=== PATIENT | female | born 1960 | race Caucasian/White ===

== ENCOUNTER → 2022-11-30 13:15 | Outpatient (CLI) | payer OTHER, SELFPAY ==
[2022-11-30 14:07] LABS: Add Manual Diff / Slide Review NO; Basophils Absolute Auto 100 /uL (0-100); Basophils Percent Auto 1.4 % (0-2); Eosinophils Absolute Auto 200 /uL (0-450); Eosinophils Percent Auto 2.2 % (2-4); Hematocrit 40.7 % (36-46); Hemoglobin 13.7 g/dL (12.0-16.0); Lymphocytes Absolute Auto 2000 /uL (1100-4500); Lymphocytes Percent Auto 27.8 % (25-40); Mean Corpuscular HGB Conc 33.7 % (30-36); Mean Corpuscular Hemoglobin 29.2 PG (26-34); Mean Corpuscular Volume 86.7 fL (80-100); Monocytes Absolute Auto 600 /uL (0-900); Monocytes Percent Auto 8.4 % (3-14); Neutrophils Absolute Auto 4400 /uL (1500-7000); Neutrophils Percent Auto 60.2 % (50-75); Platelet Count 330 X10^3/uL (150-400); Red Blood Cell Count 4.69 X10^6/uL (4.0-5.2); Red Cell Distribution Width 13.7 % (11.6-14.8); White Blood Cell Count 7.3 X10^3/uL (4.5-11.0)
[2022-11-30 14:18] LABS: BUN Creatinine Ratio 32.8 (6-22); Blood Urea Nitrogen 20 mg/dL (7-17); Calcium 9.3 mg/dL (8.4-10.2); Carbon Dioxide 30 mmol/L (22-32); Chloride 101 mmol/L (98-107); Estimated Glomerular Filt Rate > 60 mL/min (>60); Glucose 102 mg/dL (80-110); HEMOLYSIS < 15 (0-50); Sodium 136 mmol/L (137-145)
[2022-11-30 15:03] LABS: Appearance Urine UA CLEAR; Bilirubin Urine UA NEGATIVE (NEGATIVE); Color Urine UA YELLOW; Glucose Urine UA NEGATIVE (Negative); Ketones Urine UA NEGATIVE (NEGATIVE); Leukocyte Esterase Urine UA NEGATIVE (NEGATIVE); Nitrite Urine UA NEGATIVE (Negative); Occult Blood Urine UA NEGATIVE (Negative); Protein Urine UA NEGATIVE (Negative); Specific Gravity Urine UA <=1.005 (1.000-1.035); Urobilinogen Urine UA 0.2 E.U./dL (0.2)
[2022-11-30 15:20] LABS: Bacteria Urine None Seen; RBC Urine None Seen (0-5/HPF); Squamous Epithelial Cell Urine None Seen (0-5/HPF); WBC Urine None Seen (0-5/HPF)
[2022-11-30 15:21] LABS: Culture Indicated Urine Cult Not Indicated
[2022-12-01 06:35] LABS: x Labcorp Estim. Avg Glu (eAG) 111 mg/dL (.); x Labcorp Hemoglobin A1c 5.5 % (4.8-5.6)
== END ==
PROVIDERS: Referring Provider Orthopaedic Surgery; Visit Provider Orthopaedic Surgery
DX: Z01.818 Encounter for other preprocedural examination (principal); R73.9 Hyperglycemia, unspecified; Z01.812 Encounter for preprocedural laboratory examination; N39.0 Urinary tract infection, site not specified
CPT/HCPCS: 36415; 80048; 81001; 83036; 85025; 93005; 93010

== ENCOUNTER → 2024-03-25 12:43 | Outpatient (CLI) | payer OTHER, SELFPAY ==
--- NOTE | 2024-03-25 12:46 | EKG_ITS ---
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
== END ==
PROVIDERS: Referring Provider Orthopaedic Surgery; Visit Provider Orthopaedic Surgery
DX: Z01.818 Encounter for other preprocedural examination (principal)
CPT/HCPCS: 93005

== ENCOUNTER 2024-04-08 12:34 | Day surgery (SDC) | payer OTHER, SELFPAY ==
[2024-04-02 09:40] VITALS: BMI 32.2
--- NOTE | 2024-04-08 06:00 | DI.RAD.S_ITS ---
PROCEDURE: XR KNEE LT 1TO2V INDICATIONS: TKA TECHNIQUE: 2 view(s) of the knee acquired. COMPARISON: [facility] [place], PENNIE, XR KNEE ARTHRITIC SERIES BI, 12/05/2023, 8:30. FINDINGS: Bones: Patient is status post knee joint arthroplasty. Hardware components are in expected positions. Visualized bony structures are intact. Soft tissues: Overlying postoperative changes are noted. IMPRESSION: Expected immediate postoperative appearance of left TKA. Dictated by: Neel Sanchez Grady Interpreted: Jorge Calles MD on 04/09/2024 at 9:51 Transcribed by: BERNADETTE on 04/09/2024 at 9:51 Approved by: Jorge Calles M.D. on 04/16/2024 at 9:57
[2024-04-08 13:35] VITALS: BMI 32.2
[2024-04-08 13:43] VITALS: BP 136/80; PULSE 87; RESP 14; TEMP 36.9; O2SAT 98
[2024-04-08] MEDS: ACETAMINOPHEN 325 MG TABLET 975 MG PO (13:47)
[2024-04-08] MEDS: LACTATED RINGERS 1,000 ML 42 ML IV (13:59)
[2024-04-08] MEDS: VANCOMYCIN 1,000 MG/200 ML PIGGYBACK 200 MG IV (14:30)
--- NOTE | 2024-04-08 15:07 | P.OP_ITS ---
Operative Date/Time/Diagnoses Date of procedure: 04/08/24 Time of procedure: 15:30 Pre-op diagnosis: left knee OA Post-op diagnosis: same Procedure & Clinicians Procedure: Left total knee arthroplasty Same procedure as scheduled: Yes Indications: The patient has had progressively worsening left knee pain with radiographic changes consistent with arthritis. Non-operative management has failed and the patient has requested total knee replacement. The risks, benefits and alternatives to surgery were discussed with the patient prior to proceeding. Risks discussed included, but were not limited to, failure to relieve pain, stiffness, infection, nerve damage, deep venous thrombosis, pulmonary embolism, stroke, coma, heart attack, permanent paralysis and , as well as the potential need for eventual revision of the prosthetic. Surgeon: Sadaf Ibarra Contract Associate Manager: Hunter Singh Anesthesia Type: General and Peripheral nerve block Operative Notes Findings: Severe left knee OA, adequate stability Closure Type: primary Specimen(s): none sent Prosthetic devices, grafts, tissues, transplants, or devices: [facility] BCS 2 size 5 femur, size 4 tibia, +9 poly, patella 35 x 7-1/2 mm Estimated Blood Loss (mL): 250 Blood products transfused: none Procedure in detail: The patient was seen in the pre-operative area, where the patient identified the left knee as the operative site and this was marked with my initials. The patient received pre-operative antibiotics, and was taken to the operating room and placed on the operative table in the supine position. After satisfactory anesthesia, a timekeeper out was performed. The left leg was encircled with a tourniquet about the proximal thigh, and the leg was prepared from the toes to the tourniquet with ChloroPrep in the usual fashion and draped through sterile drapes. The leg was elevated and exsanguinated with Eschmark bandage and the tourniquet inflated to [250] mmHg pressure. A PA was used during the procedure and was essential for intraoperative retraction and safe implantation of the components. The knee was approached through an approximately 18 cm incision centered over the patella and carried into the knee through a medial parapatellar arthrotomy. Portion of the medial and lateral meniscus was resected. Soft tissue was carefully mobilized around the patella the patella was measured with a caliper. Bone was resected from the patella and the patellar height was reconstituted with up an appropriate sized patellar component. A cover was then placed on the patella. A small amount of additional medial and lateral meniscus was resected. Cori pins were placed in the femur for Cori navigation. The knee was meticulously mapped. It was placed through a range of motion and a plan was developed to optimize range of motion and stability. The Cori robotic bur was used for the distal femoral resection. It looked like an appropriate distal femoral cut and the cut was made without difficulty. The rotation was assessed and the appropriate size femoral guide was placed on the distal femur and finishing cuts were made. There was no evidence of notching. The anterior, posterior and chamfer cuts were then made. The posterior osteophytes and soft tissues were then removed. The posterior capsule was injected with part of a mixture of 60 ml 0.25% Marcaine mixed with 20 ml Exparel for post operative pain control. The remainder of this mixture was injected into the capsule and subcutaneous tissues during cement curing. The tibia was carefully navigated. The rotation was assessed. The patient was placed in extension residual medial and lateral meniscus as well as any residual bone was carefully resected. [No] additional tibia was resected. Hemostasis was achieved especially posteriorly. Additional local was injected into the posterior capsule. The extension gap was assessed. The femoral component was trial was placed and the notch was finished. Trial tibial and femoral components were then placed and the knee placed through a range of motion. Range of motion was [0-130], with good stability throughout the range. The trials were then removed, and the tibia was finished. The bone was prepared with pulsatile lavage, and dried with a sponge. Cement was applied and the final prosthetics placed. Excess cement was removed during and after cement curing. A brief Betadine soak was performed. After confirming there was no extruded cement posteriorly, the final tibial insert was placed. The knee was copiously irrigated and the tourniquet deflated. Hemostasis was obtained with the Bovie cautery. The capsule was closed with interrupted # 1 Vicryl suture. The subcutaneous layer was closed with barbed sutures, and the skin with a running 3-0 V-Lock suture and Surgical glue. An Aquacel Ag dressing was applied and the patient was taken to recovery having tolerated the procedure well. Complications: none Post-operative Condition: stable Disposition: Acute Care Plan for aftercare: The patient will be maintained on a standard total knee replacement protocol with weight bearing as tolerated. The patient will receive aspirin and sequential compression devices for DVT prophylaxis. The patient will be discharged home when safe for the home environment.
--- NOTE | 2024-04-08 15:07 | PM.PREOP ---
Pre-operative Note Interval Note History & Physical reviewed/Exam performed by Physician: Yes Changes to H&P: No
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
--- NOTE | 2024-04-08 15:25 | SUR.PREOP ---
Block start time [1517] . Monitoring initiated and maintained throughout procedure. Oxygen and medications given per anesthesiologist instructions. Patient remained stable throughout procedure, no adverse reactions noted. Block end time [1522].
[2024-04-08] MEDS: CEFAZOLIN 2 GM/100 ML PREMIX 100 ML IV ×2 (15:47→22:36)
[2024-04-08] MEDS: TRANEXAMIC ACID 1,000 MG VIAL 1000 MG INJ ×2 (15:55→17:45)
--- NOTE | 2024-04-08 16:03 | SUR.OPER ---
Supine on padded OR bed. Pillow under head, arms secured on padded armboards <90 degree abduction. Safety belt across torso. Non-operative leg secured with tape over blanket over lower leg. Operative leg secured in Odilon. Foam padded brace at thigh of operative leg.
[2024-04-08] MEDS: BUPIVACAINE 0.25% (PF) 60 ML, EPINEPHrine 0.3 MG INJ (16:21)
[2024-04-08] MEDS: BUPIVACAINE LIPOSOME 266 MG/20 ML VIAL INJ (16:21)
[2024-04-08 16:35] VITALS: BP 129/71; PULSE 79; RESP 18; TEMP 35.9; O2SAT 100
[2024-04-08 18:20] VITALS: BP 103/60; PULSE 77; RESP 14; TEMP 36.6; O2SAT 99
[2024-04-08 18:25] VITALS: BP 105/57; PULSE 78; RESP 17; O2SAT 99
[2024-04-08 18:31] VITALS: BP 101/78; PULSE 78; RESP 16; TEMP 36.1; O2SAT 98
--- NOTE | 2024-04-08 18:45 | PC.NURSE ---
Patient brought up by Juan Manuel LARA from PACU to room 224. VSS. Denies pain. Oriented to room and call light, and call light placed within reach. Bed alarm activated for safety. RUBENS dressing in place to left knee and green light active, no drainage or bleeding noted.
[2024-04-08 19:00] VITALS: BMI 32.2
[2024-04-08 20:00] VITALS: BP 121/71; PULSE 84; RESP 18; TEMP 36.3; O2SAT 98
[2024-04-08] MEDS: ASPIRIN EC 81 MG TABLET PO (22:35)
[2024-04-08] MEDS: CYCLOBENZAPRINE 10 MG TABLET 20 MG PO (22:35)
[2024-04-08] MEDS: DOCUSATE 100 MG CAPSULE PO (22:36)
[2024-04-08] MEDS: clonazePAM 0.5 MG TABLET 1 MG PO (22:36)
[2024-04-08] MEDS: OXYCODONE IR 5 MG TABLET PO (22:46)
[2024-04-08] MEDS: ZOLPIDEM 5 MG TABLET PO (22:46)
[2024-04-09] VITALS: BP 135/69; PULSE 96; RESP 16; TEMP 36.2; O2SAT 94
[2024-04-09] MEDS: LACTATED RINGERS 1,000 ML 100 ML IV (01:03)
[2024-04-09] MEDS: IBUPROFEN 400 MG TABLET PO ×2 (03:07→08:40)
[2024-04-09 04:03] VITALS: BP 132/69; PULSE 88; RESP 18; TEMP 36.3; O2SAT 97
[2024-04-09 05:39] LABS: Hemoglobin 12.1 g/dL (12.0-16.0)
--- NOTE | 2024-04-09 07:41 | PM.PNPO.1 ---
Subjective Subjective Date Patient Seen: 04/09/24 Exam Vital Signs (past 8 hours): - 04/09/24 00:00 04/09/24 04:03 Temperature 97.1 F L 97.4 F L Pulse Rate 96 H 88 Respiratory Rate 16 18 Blood Pressure 135/69 132/69 Pulse Oximetry 94 97 Oxygen Flow Rate 0 0 Oxygen Delivery Method Room Air Oxygen Flow Rate 0 Objective Labs 04/09/24 04:20 Labs: Laboratory Results - last 24 hr 04/09/24 04:20 Hgb 12.1 Hct 37.0 PFSH Medical History (Updated 09/03/23 @ 13:19 by Nguyen Gonzalez RN) Insomnia Anxiety PTSD (post-traumatic stress disorder) Chronic fatigue syndrome ADHD Hypothyroid History of IBS HTN (hypertension) Sleep apnea Raynaud's disease Fibromyalgia Cyclical vomiting Osteoarthritis Surgical History (Updated 09/03/23 @ 13:19 by Nguyen Gonzalez RN) History of carpal tunnel surgery of right wrist Hx of tonsillectomy History of carpal tunnel surgery of left wrist (11/06/22) Social History household members: none Smoking Status: Current every day smoker alcohol intake: current Assessment & Plan Post-op Postoperative Procedures: Procedures Operation Date: 04/08/24 15:00 Actual Procedure Side Surgeon p Total Knee Arthroplasty - Robot Left Sadaf Ibarra MD
[2024-04-09] MEDS: CEFAZOLIN 2 GM/100 ML PREMIX 100 ML IV (07:44)
[2024-04-09 08:00] VITALS: BP 125/69; PULSE 86; RESP 16; TEMP 36.6; O2SAT 96
[2024-04-09] MEDS: ASPIRIN EC 81 MG TABLET PO (08:39)
[2024-04-09] MEDS: ACETAMINOPHEN 325 MG TABLET 650 MG PO (08:39)
[2024-04-09] MEDS: OXYCODONE IR 5 MG TABLET PO (08:39)
[2024-04-09] MEDS: DOCUSATE 100 MG CAPSULE PO (08:40)
[2024-04-09] MEDS: polyethylene glycoL 3350 17 GM POWD.PACK PO (08:40)
[2024-04-09] MEDS: MAGNESIUM OXIDE 400 MG TABLET PO (08:40)
--- NOTE | 2024-04-09 10:37 | PM.DS.1 ---
History of Present Illness History of Present Illness Date Patient Seen: 04/09/24 Time Patient Seen: 10:37 Chief complaint: Left TKA *OPB* 04/08 Narrative: The patient has had progressively worsening left knee pain with radiographic changes consistent with arthritis. Non-operative management has failed and the patient has requested total knee replacement. The risks, benefits and alternatives to surgery were discussed with the patient prior to proceeding. Risks discussed included, but were not limited to, failure to relieve pain, stiffness, infection, nerve damage, deep venous thrombosis, pulmonary embolism, stroke, coma, heart attack, permanent paralysis and , as well as the potential need for eventual revision of the prosthetic. Discharge Providers Provider Discharge Date: 04/09/24 Primary care physician: Sabiha Mijares MD Consults: 04/08/24 06:00 Consult to Anesthesiology Routine Comment: Consulting Provider: Anesthesiologist Reason for consultation: Regional block for post operative pain control Has provider been notified: No 04/08/24 21:09 Consult to Discharge Planning Routine Comment: Consult to Occupational Therapy Evaluate & Treat Comment: Physician Instructions: Evaluate and treat Consult to Physical Therapy Evaluate & Treat Comment: Physician Instructions: postop TKA protocol Discharge provider: Ion Mathis PA-C Summary Hospital Course Discharge Diagnosis: left knee OA Hospital Course: Date of procedure: 04/08/24 Time of procedure: 15:30 Pre-op diagnosis: left knee OA Post-op diagnosis: same Procedure & Clinicians Procedure: Left total knee arthroplasty Same procedure as scheduled: Yes Surgeon: Sadaf Ibarra Business Solution Analyst: Hunter Singh Anesthesia Type: General and Peripheral nerve block Operative Notes Findings: Severe left knee OA, adequate stability Closure Type: primary Specimen(s): none sent Prosthetic devices, grafts, tissues, transplants, or devices: [facility] [employer] [facility] [employer] BCS 2 size 5 femur, size 4 tibia, +9 poly, patella 35 x 7-1/2 mm Estimated Blood Loss (mL): 250 Blood products transfused: none Status at Discharge Cognitive/behavioral status at discharge: oriented Functional status at discharge: uses cane/walker Overall status at discharge: patient is back to baseline Time Spent with Patient Time spent: Less than 30 minutes Exam Vital Signs (past 8 hours): - 04/09/24 04:03 Temperature 97.4 F L Pulse Rate 88 Respiratory Rate 18 Blood Pressure 132/69 Pulse Oximetry 97 Oxygen Flow Rate 0 Oxygen Delivery Method Room Air Oxygen Flow Rate 0 Narrative Exam Narrative: Patient is found sitting in bed in good general spirits. She says she has relatively no pain in her left knee. She has not yet worked with physical therapy. She is expecting to be discharged home today with a nurse friend. 5/5 strength in hip flexors, quadriceps, hamstrings, DF, PF, EHL bilaterally. Sensation to light touch intact throughout BLE. Calves soft, compressible, nontender. ?Dressing placed intraoperatively CDI. RUBENS cord has been cut and is non-functioning SCDs in place over right calf and left foot. Resp Effort & Inspection: normal respiratory effort and able to speak in complete sentences Objective Labs 04/09/24 04:20 Labs: Laboratory Results - last 24 hr 04/09/24 04:20 Hgb 12.1 Hct 37.0 PFSH Medical History (Updated 09/03/23 @ 13:19 by Nguyen Gonzalez RN) Insomnia Anxiety PTSD (post-traumatic stress disorder) Chronic fatigue syndrome ADHD Hypothyroid History of IBS HTN (hypertension) Sleep apnea Raynaud's disease Fibromyalgia Cyclical vomiting Osteoarthritis Surgical History (Updated 09/03/23 @ 13:19 by Nguyen Gonzalez, RN) History of carpal tunnel surgery of right wrist Hx of tonsillectomy History of carpal tunnel surgery of left wrist (11/06/22) Social History household members: none Smoking Status: Current every day smoker alcohol intake: current Discharge Assessment & Plan Assessment and Plan Assessment: Status post left knee total arthroplasty. Plan of Treatment: Plan to discharge home with a friend. Standard total knee replacement protocol with weight-bearing as tolerated. Aspirin 81 mg b.i.d. for DVT prophylaxis Multimodal pain management with baseline medications acetaminophen 500 mg and ibuprofen 400 mg q.4 hours PRN. Patient will be prescribed oxycodone 5 mg take every 4 hours as needed for any breakthrough pain. Prescribe Zofran 4 mg Q 8 hours prn for postoperative nausea and vomiting. Patient may take Colace [id number] use as directed as a stool softener. Initiate postoperative physical therapy in 5-10 days. Keep dressing on clean and dry until follow up in clinic. Follow up in 2 weeks at clinic for wound check and x-rays. Discharge Plan Discharge orders & Medications Prescriptions: No Action dextroamphetamine-amphetamine [Adderall] 30 mg Tablet 30 mg PO BID Rx Instructions: administer doses at least 4-6 hours apart zolpidem [Ambien] 5 mg Tablet 5 mg PO BEDTIME PRN (Reason: Sleep) Rx Instructions: may repeat once if no response in 30-60 minutes promethazine 25 mg Tablet 25 mg PO Q4-6H PRN (Reason: Nausea, vomiting) cyclobenzaprine 10 mg tablet 20 mg PO BID PRN (Reason: Pain, Moderate) clonazepam 1 mg tablet 1 mg PO BID PRN (Reason: anxiety) magnesium oxide 400 mg (241.3 mg magnesium) tablet 400 mg PO DAILY propranolol 20 mg Tablet 20 mg PO PRN PRN (Reason: Anxiety) Follow up/Referrals: Sabiha Mijares MD [Primary Care Provider] - Sadaf Ibarra MD [Physician] - 04/23/24 2:00 pm (appt:04/23 @ 2:[address] Ibarra @ [facility] [address] [place] please arrive 15 min prior to scheduled appointment time ) Discharge Data Primary Care Provider: Sabiha Mijares Attending Provider: Sadaf Ibarra
--- NOTE | 2024-04-09 10:45 | PT.IIE ---
Current Diagnoses Bilateral primary osteoarthritis of knee (04/08/24) Surgery Performed Operation Date: 04/08/24 15:00 Actual Procedures p Total Knee Arthroplasty - Robot(Left) - Sadaf Ibarra MD Surgical History (Last Updated 09/03/23 @ 13:19 by Nguyen Gonzalez, RN) History of carpal tunnel surgery of left wrist (11/06/22) History of carpal tunnel surgery of right wrist Hx of tonsillectomy Medical History (Last Updated 09/03/23 @ 13:19 by Nguyen Gonzalez RN) ADHD Anxiety Chronic fatigue syndrome Cyclical vomiting Fibromyalgia History of IBS HTN (hypertension) Hypothyroid Insomnia Osteoarthritis PTSD (post-traumatic stress disorder) Raynaud's disease Sleep apnea Physical Therapy Inpatient Evaluation/Re-Eval M1 PT/OT-IP Prior Functional Status Start: 04/09/24 12:57 Freq: NEEDED Status: Active Protocol: Document 04/09/24 10:45 AB (Rec: 04/09/24 13:12 AB [id number]) Medical Review Prior Functional Status Medical History Reviewed Yes Communication able to make needs known Mobility and Gait pt stated that she was modified independent with all mobilities and ambulation without AD Activities of Daily Living and IADL's per OT note: Pt had pain durin ADL needs. Social History Household Members none Living Arrangements Apartment/Condo Number of Stairs To Enter/Railing? pt plans to stay at her friend 's house and not sure about home set up. Home Equipment Front Wheel Walker,Straight Cane,Crutches,Shower Seat with Backrest,Long Handled Sponge, Decorating Equipment Setter Additional Social History Comment pt has an UP walker but stated that her friend will get a FWW for her today M2 PT-IP Current Condition Start: 04/09/24 12:57 Freq: NEEDED Status: Active Protocol: Document 04/09/24 10:45 AB (Rec: 04/09/24 13:12 AB [id number]) Physical Therapy Current Condition Current Condition Evaluation Date 04/09/24 Treatment Diagnosis s/p L TKA; difficulty in walking Onset Date 04/08/24 M3 PT-IP Subjective Start: 04/09/24 12:57 Freq: NEEDED Status: Active Protocol: Document 04/09/24 10:45 AB (Rec: 04/09/24 13:12 AB [id number]) Subjective Physical Therapy Visit Type Type Initial Evaluation Visit Start Time 10:45 Visit Stop Time 11:40 Number of STONE ROUGHER Visits 0 Physical Therapy Visit Comments Patient Comments agreeable to do PT Therapy Pain Assessment Pain When Pain Assessed At Rest Pain Present Pain Present Pain Reported Location Left Knee Intensity 1 Scale Used Numeric (0 - 10) Pain Management Techniques Distraction,Modification of Treatment,Re-positioning, Timing of Activity with Medications M4 PT-IP Mobility and Gait Start: 04/09/24 12:57 Freq: NEEDED Status: Active Protocol: Document 04/09/24 10:45 AB (Rec: 04/09/24 13:12 AB [id number]) PT-Bed Mobility Assessment Supine to Sit Supine to Sit Standby Assistance PT-Transfer Assessment Sit to and From Stand Sit to and from Stand Standby Assistance,Contact Guard Assistance,1 Person Assistance,Use of Upper Extremities Equipment Transfer Assistive Device Gait Belt,Front Wheeled Walker Orthotic/Prosthetic Devices or Brace: No Transfers Transfer Destination Chair,Toilet Transfer Ability Level of Assist Standby Assistance,Contact Guard Assistance,1 Person Assistance,Use of Upper Extremities Comments Mobility Comments pt supine in bed and agreeable to do PT. pt easily distracted and needs cues for safety. pt can be impulsive. obtained PLOF and home set up. post-op folder provided and reviewed contents. HEP reviewed with pt. pt completed supine to sit SBA . able to sit on EOB SBA. pt requested to use the toilet. sit to stand from EOB CGA and ambulated to the toilet using FWW CGA and cues for safety. pt able to complete toileting SBA. sit to stand from the toilet using grab bar SBA and ambulated towards the sink using FWW SBA. able to maintain standing using FWW/ counter for support SBA while completing handwashing. pt ambulated out in the hallway using FWW SBA to occasional CGA ~ 150 ft. cues for steadiness and to slow down. stair climbing training. pt not sure if her friend's house has stairs. stair climbing training completed for safety. completed up/down steps using B rails CGA. completed up/down steps again holding on to L rail with B hands CGA. assisted pt back to her room. pt ambulated from w/c to chair using fWW SBA. positioned pt on the chair. call light and table placed within reach. Gait Assessment Gait Gait Assistance Required: Standby Assistance,Contact Guard Assist Distance (Feet) 150 Able to Maintain Weight Bearing Status Yes During Gait Assistive Devices Assistive Device Gait Belt,Front Wheeled Walker Orthotic/Prosthetic Devices or Brace: No Gait Deviations General Gait Pattern Antalgic,Decreased Stride Length,Decreased Feet Clearance Factors Limiting Gait Function Factors Limiting Gait Function Decreased Activity Tolerance, Decreased Strength,Difficulty Following Directions,Limited Range of Motion,Pain,Poor Balance,Poor Safety Awareness Stair Climbing Assessment Evaluation Level of Assist On Stairs Contact Guard Assistance Devices Stair Climbing Assistive Devices Left Railing,Right Railing Technique/Endurance Stair Climbing Direction Ascend and Descend Stair Climbing Technique Step to Step Number of Steps Climbed 3 Query Text: Stair Climbing Set # Repetitions (reps) 2 Comments Stair Climbing Comments pls refer to mobility section for details PT-Balance Assessment Sitting Balance and Reactions Static Sitting Balance Ability Normal Dynamic Sitting Balance Ability Good Standing Balance and Reactions Static Standing Balance Ability Good Dynamic Standing Balance Ability Fair Device Used FWW M5 PT-IP Objective Assessments Start: 04/09/24 12:57 Freq: NEEDED Status: Active Protocol: Document 04/09/24 10:45 AB (Rec: 04/09/24 13:12 AB [id number]) Orientation Orientation/Cognition Level of Alertness Alert Orientation Name,Place,Situation Language Function Ability No Deficits Noted Safety Awareness Decreased Safety Awareness Memory Description No Deficits Noted Gross Range of Motion Lower Extremity ROM Assessment Left Impaired Impairments L knee flexion: ~ 70 deg Strength Lower Extremity Strength Assessment Left Impaired Hip 4-/5 Knee 3+/5 Coordination Assessment Gross Coordination Gross Coordination WNL Sensation Assessment Sensation Gross Sensation WNL Muscle Tone Muscle Tone WNL Yes M6 PT-IP Treatment Start: 04/09/24 12:57 Freq: NEEDED Status: Active Protocol: Document 04/09/24 10:45 AB (Rec: 04/09/24 13:12 AB [id number]) Physical Therapy Treatment Exercises Exercises Heel Slides Education Education Provided Precautions,Weight Bearing Status,Post-Op Packet,Safety M7 PT-IP Assessment and Plan Start: 04/09/24 12:57 Freq: NEEDED Status: Active Protocol: Document 04/09/24 10:45 AB (Rec: 04/09/24 13:12 AB [id number]) PT Summary Assessment and Plan Potential Rehabilitation Potential Fair Status of Condition at Evaluation Evolving Summary Impairments Pain,ROM,Strength,Balance, Coordination,Sensation,Tone, Cognition,Bed Mobility, Transfers,Gait,Activity Tolerance Assessment Summary Pt is a 64 y/o F s/p L TKA POD 1. pt is WBAT on LLE. pt requiring SBA to CGA with mobility using FWW. pt plans to go to her friend's house upon d/c and will have her friend to assist if needed. pt may go home when medically stable. Goals Bed Mobility Goal Independent Transfer Goal Independent,Front Wheeled Walker Gait Goal Independent,Front Wheel Walker Gait Distance 300 Other Goals up/down steps using 1 rail mod I Days to Meet Goals 5 Frequency of Treatment Frequency Of Treatment Twice a Day Treatment Plan Physical Therapy Treatment Plan Bed Mobility Training,Transfer Training,Gait Training, Therapeutic Exercise,Balance Retraining,Post Op Education, Discharge Planning,Hot or Cold Pack,Neuromuscular Re-ed, Coordination Retraining,Manual Therapy Weight Bearing Status Weight Bearing Status Weight Bear as Tolerated Allowed Weight Bearing Amount (enter % LLE WBAT or #) (%) Recommendations To Nursing Amount of Assist Needed 1 Person Assist Discharge Recommendations PT Discharge Recommendations Home with Assistance, Outpatient PT Transportation Needs at Discharge Private Vehicle
--- NOTE | 2024-04-09 12:02 | OT.IP.EVAL ---
Current Diagnoses Bilateral primary osteoarthritis of knee (04/08/24) Surgery Performed Operation Date: 04/08/24 15:00 Actual Procedures p Total Knee Arthroplasty - Robot(Left) - Sadaf Ibarra MD Past Medical History (Last Updated 09/03/23 @ 13:19 by Nguyen Gonzalez, RN) ADHD Anxiety Chronic fatigue syndrome Cyclical vomiting Fibromyalgia History of IBS HTN (hypertension) Hypothyroid Insomnia Osteoarthritis PTSD (post-traumatic stress disorder) Raynaud's disease Sleep apnea Surgical History (Last Updated 09/03/23 @ 13:19 by Nguyen Gonzalez RN) History of carpal tunnel surgery of left wrist (11/06/22) History of carpal tunnel surgery of right wrist Hx of tonsillectomy Occupational Therapy Inpatient Evaluation/Re-Eval M1 PT/OT-IP Prior Functional Status Start: 04/09/24 12:04 Freq: NEEDED Status: Active Protocol: Document 04/09/24 12:04 [facility] (Rec: 04/09/24 12:19 [facility] [id number]) Medical Review Prior Functional Status Communication I Mobility and Gait Pt states either walked with as up walker, FWW, crutches, or cane pending how she was feeling. Activities of Daily Living and IADL's Pt had pain during ADL needs. Prior Functional Level (Other details) pt to live at a friend's house but not sure which one , so unsure of any set-up at this time. Social History Household Members none Living Arrangements Apartment/Condo Home Equipment Front Wheel Walker,Straight Cane,Crutches,Shower Seat with Backrest,Long Handled Sponge, Centrifugal Extractor Operator M2 OT-IP Current Condition Start: 04/09/24 12:04 Freq: Status: Active Protocol: Document 04/09/24 12:04 [facility] (Rec: 04/09/24 12:19 [facility] [id number]) Occupational Therapy Current Condition Current Condition Evaluation Date 04/09/24 Treatment Diagnosis S/P L TKA M3 OT- IP Subjective and Pain Start: 04/09/24 12:04 Freq: Status: Active Protocol: Document 04/09/24 12:04 [facility] (Rec: 04/09/24 12:19 [facility] [id number]) OT- Subjective Occupational Therapy Visit Type Type Initial Evaluation Visit Start Time 11:25 Visit Stop Time 12:02 Occupational Therapy Visit Comments Patient Comments Pt agreed to get dressed. Patient/Caregiver Goals TO get better. OT Pain Assessment Pain When Pain Assessed At Rest Pain Present Pain Present Pain Reported Location Left Knee Intensity 2 Scale Used Numeric (0 - 10) M4 OT- IP ADL's Start: 04/09/24 12:04 Freq: Status: Active Protocol: Document 04/09/24 12:04 [facility] (Rec: 04/09/24 12:19 [facility] [id number]) OT JNC-Ftrk-Zucazef General Evaluation Self-Feeding Ability Independent OT ADL-Grooming Comments OT Grooming Comments Not performed. OT ADL-Oral Care Comments Oral Care Comments Pt refused. OT ADL-Dressing General Eval Upper Body Dressing Ability Independent Lower Body Dressing Ability Standby Assistance Comments OT Dressing Comments Distant SBA when pt doing LB dressing needs. Pt able to reach appropriately to adenike pants and slippers. Educated to dress the LLE first and take out last. Also to be mindful not to twist her knee during ADL needs. OT ADL-Toileting Comments OT Toileting Comments Pt not having to go. Pt states has briefs to use as needed. OT ADL-Bathing Comments OT Bathing Comments Pt states looking to get a tub bench. M5 OT- IP IADL's Start: 04/09/24 12:04 Freq: Status: Active Protocol: Document 04/09/24 12:04 [facility] (Rec: 04/09/24 12:19 [facility] [id number]) OT-Instrumental Activities of Daily Living Deficits IADL Deficits Identified Deficits Home Safety Awareness Home Safety Comments Pt is a bit impulsive and be good to have at least supervision for needs. Pt states to stay with a friend. M6 OT- IP Functional Cognition Start: 04/09/24 12:04 Freq: Status: Active Protocol: Document 04/09/24 12:04 [facility] (Rec: 04/09/24 12:19 [facility] [id number]) Cognitive Factors Limiting Selfcare Function Cognitive Ability Level of Alertness Alert Patient Orientation Name,Age,Birthday,Month,Date, Year,Day of Week,Place, Situation Attention Span Ability Capable of Focused Attention, Capable of Sustained Attention Ability to Follow Commands Able to Follow One Step Commands Cognitive Comments Cognitive Assessment Comments Pt needing cues to slow down and gets easily distracted. Pt needing vc for safety awareness to put up from the armrest of the chair to stand to the FWW. OT- Vision and Hearing OT- Vision Assessment Visual Acuity Contact Lenses Visual Attentiveness WFL Occular Pursuits WFL M7 OT- IP Mobility and Balance Start: 04/09/24 12:04 Freq: Status: Active Protocol: Document 04/09/24 12:04 [facility] (Rec: 04/09/24 12:19 [facility] [id number]) OT-Transfer Assessment Sit to and From Stand Sit to and from Stand Standby Assistance Comments Mobility Comments SBA with FWW from wc to recliner. OT- Balance Assessment Sitting Balance and Reactions Static Sitting Balance Ability Normal Dynamic Sitting Balance Ability Good Standing Balance and Reactions Static Standing Balance Ability Good Dynamic Standing Balance Ability Fair M8 OT- IP Objective Assessments Start: 04/09/24 12:04 Freq: Status: Active Protocol: Document 04/09/24 12:04 [facility] (Rec: 04/09/24 12:19 [facility] [id number]) OT Gross Range of Motion Upper Extremity Range of Motion Assessment Within Functional Limits OT Strength Upper Extremity Strength Assessment Within Functional Limits M9 OT- IP Assessment and Plan Start: 04/09/24 12:04 Freq: Status: Active Protocol: Document 04/09/24 12:04 [facility] (Rec: 04/09/24 12:19 [facility] [id number]) OT Summary Assessment and Plan Potential Rehabilitation Potential Excellent Analytic Complexity at Evaluation Low Summary OT Impairments Pain,Balance,Functional Mobility,Dressing,Toileting, Bathing,Toilet Transfers, Shower Transfers Progress Towards Goals Progressing Toward Goals Assessment Summary Pt low complexity and main barriers are pain, steps, a bit impulsive and decreased safety awareness. Pt looking to go to her friend's house to stay and go to outpt PT. Goals Self-Feeding Goal Independent Grooming Goal Independent Dressing Goal Independent Toileting Goal Independent Bathing Goal Independent Toilet Transfer Goal Independent Shower Transfer Goal Independent Days to Meet Goals 7 Frequency of Treatment Other frequency 5x/week Treatment Plan OT Treatment Plan ADL Training,Functional Mobility,Patient/Family Education,Discharge Planning Discharge Recommendations OT Discharge Recommendations Home with Assistance, Outpatient PT Home Equipment Needs tub bench, LB dressing equipment Transportation Needs at Discharge Private Vehicle
== END 2024-04-09 13:28 | disposition home or self-care (01) ==
LOC: OR 12:36 → AC 15:58
PROVIDERS: PCP Internal Medicine; Referring Provider Orthopaedic Surgery; Visit Provider Orthopaedic Surgery
PROC: 0SRD0JZ Replacement of Left Knee Joint with Synthetic Substitute, Open Approach (ICD-10-PCS; CPT 27447; principal; 2024-04-08 15:00)
DX: M17.12 Unilateral primary osteoarthritis, left knee (principal); G89.18 Other acute postprocedural pain; M25.762 Osteophyte, left knee
CPT/HCPCS: 27447; 36415; 64450; 73560; 85014; 85018; 97116; 97161; 97165; 97530; 97535; C1776; C9290; J0171; J0690; J1100; J2250; J2405; J2704; J3010

== ENCOUNTER 2024-07-21 14:52 | Emergency (ER) | payer SELFPAY ==
[2024-07-21] VITALS (9 sets, daily range): BP systolic 132–152; BP diastolic 77–89; PULSE 62–111; RESP 18–42; TEMP 36.4; O2SAT 96–100; BMI 36.2
--- NOTE | 2024-07-21 15:12 | DI.RAD.S_ITS ---
PROCEDURE: XR CHEST 1V INDICATIONS: Shortness of breath TECHNIQUE: One view of the chest was acquired. COMPARISON: None. FINDINGS: Surgical changes and devices: None. Lungs and pleura: Pulmonary vascular congestion is seen. Small bilateral pleural effusion and bibasilar atelectasis/small infiltrates are seen. No pneumothorax. Mediastinum: Mediastinal contours appear normal. Heart size is enlarged. Bones and chest wall: No suspicious bony lesions. Overlying soft tissues appear unremarkable. IMPRESSION: CHF changes. Cannot rule out small bibasilar infiltrate/atelectasis. No pneumothorax. Dictated by: Gulshan Rodriguez M.D. on 07/21/2024 at 15:51 Approved by: Gulshan Rodriguez M.D. on 07/21/2024 at 15:52
--- NOTE | 2024-07-21 15:12 | EKG_ITS ---
[place] [address] [place] [id number] Test Date: 2024-07-21 Pat Name: Sejal Perales Department: [facility] Room: Gender: Female Resourcing Consultant: MYA LARA : 1960 Requested By: Order Number: [id number] Reading MD: Mac Balderrama Measurements Intervals [place] Rate: 110 P: 45 SC: 136 QRS: 24 QRSD: 84 T: -10 QT: 342 QTc: 462 Interpretive Statements Sinus tachycardia with premature atrial complexes Possible Anterior infarct , age undetermined Electronically Signed On 07-22-2024 11:13:14 PST by Mac Balderrama
[2024-07-21 15:49] LABS: Add Manual Diff / Slide Review NO; Basophils Absolute Auto 100 /uL (0-100); Basophils Percent Auto 0.9 % (0-2); Eosinophils Absolute Auto 100 /uL (0-450); Hematocrit 39.8 % (36-46); Hemoglobin 12.5 g/dL (12.0-16.0); Lymphocytes Absolute Auto 1200 /uL (1100-4500); Lymphocytes Percent Auto 14.7 % (25-40); Mean Corpuscular HGB Conc 31.4 % (30-36); Mean Corpuscular Volume 79.5 fL (80-100); Monocytes Absolute Auto 500 /uL (0-900); Monocytes Percent Auto 5.8 % (3-14); Neutrophils Absolute Auto 6500 /uL (1500-7000); Neutrophils Percent Auto 77.6 % (50-75); Platelet Count 228 X10^3/uL (150-400); Red Cell Distribution Width 17.6 % (11.6-14.8); White Blood Cell Count 8.4 X10^3/uL (4.5-11.0)
[2024-07-21 15:59] LABS: Alanine Aminotransferase 33 IU/L (<35); Albumin 3.7 g/dL (3.5-5.0); Albumin Globulin Ratio 1.2 (1.0-2.8); Alkaline Phosphatase 114 U/L (38-126); Aspartate Aminotransferase 40 IU/L (14-36); BUN Creatinine Ratio 25.9 (6-22); Bilirubin Total 0.7 mg/dL (0.2-1.3); Blood Urea Nitrogen 22 mg/dL (7-17); Calcium 8.8 mg/dL (8.4-10.2); Carbon Dioxide 25 mmol/L (22-32); Chloride 107 mmol/L (98-107); Estimated Glomerular Filt Rate > 60 mL/min (>60); Globulin 3.2 g/dL (1.7-4.1); Glucose 86 mg/dL (80-110); HEMOLYSIS 29 (0-50); Potassium 3.9 mmol/L (3.4-5.1); Sodium 140 mmol/L (137-145); Total Protein 6.9 g/dL (6.3-8.2)
[2024-07-21 16:11] LABS: NT-proBNP (BNP-Adult 18+) 6350 pg/mL (<125); Troponin I 0.076 ng/mL (0.01-0.034)
[2024-07-21 16:33] LABS: INR 1.2 (0.9-1.3); Prothrombin Time 13.1 SECONDS (9.4-12.5)
[2024-07-21 16:44] LABS: Lactate (Lactic Acid) 1.6 mmol/L (0.7-2.1)
--- NOTE | 2024-07-21 19:34 | ED.SOB ---
HPI - SOB/Dyspnea General Chief Complaint: Shortness of Breath/Dyspnea Stated Complaint: chest pain vomitting diarrhea difficulty walking Time Seen by Provider: 07/21/24 19:34 Source: patient Mode of arrival: Ambulatory History of Present Illness HPI Narrative: Patient is a 64-year-old female with a past medical history of CHF on Lasix and hydrochlorothiazide, states worse when lying flat with intermittent chest pain muscle weakness since April of 2023. She states that she presents today because she is having worsening shortness of breath, does use a cane at baseline noted to have increased swelling to her lower extremities. She is not complaining of any headache visual disturbances fever chills nausea vomiting abdominal pain or any other GI/ symptoms at this time. Related Data Home Medications Medication Instructions Recorded Confirmed dextroamphetamine-amphetamine 30 30 mg PO BID 09/03/23 04/08/24 mg tablet (Adderall) promethazine 25 mg tablet 25 mg PO Q4-6H PRN Nausea, vomiting 09/03/23 04/02/24 zolpidem 5 mg tablet (Ambien) 5 mg PO BEDTIME PRN Sleep 09/03/23 04/08/24 clonazepam 1 mg tablet 1 mg PO BID PRN anxiety 04/02/24 04/08/24 cyclobenzaprine 10 mg tablet 20 mg PO BID PRN Pain, Moderate 04/02/24 04/08/24 magnesium oxide 400 mg (241.3 mg 400 mg PO DAILY 04/02/24 04/02/24 magnesium) tablet propranolol 20 mg tablet 20 mg PO PRN PRN Anxiety 04/02/24 04/02/24 Previous Rx's Medication Instructions Recorded aspirin 81 mg tablet,delayed 81 mg PO BID #90 tabs 04/09/24 release ondansetron 4 mg disintegrating 4 mg PO Q4HR PRN Nausea And 04/09/24 tablet Vomiting #10 tabs oxycodone 5 mg tablet 5 mg PO Q4H PRN Pain, Moderate 04/09/24 (4-6) #40 tabs Allergies Allergy/AdvReac Type Severity Reaction Status Date / Time No Known Drug Allergies Allergy Verified 07/21/24 15:04 Patient History Medical History (Updated 07/21/24 @ 20:46 by Paxton Keen DO) Insomnia Anxiety PTSD (post-traumatic stress disorder) Chronic fatigue syndrome ADHD Hypothyroid History of IBS HTN (hypertension) Sleep apnea Raynaud's disease Fibromyalgia Cyclical vomiting Osteoarthritis Surgical History (Updated 09/03/23 @ 13:19 by Nguyen Gonzalez RN) History of carpal tunnel surgery of right wrist Hx of tonsillectomy History of carpal tunnel surgery of left wrist (11/06/22) Social History household members: none Smoking Status: Current every day smoker alcohol intake: current Smoking Status: Current every day smoker alcohol intake frequency: holidays/special occasions only Exam Initial Vital Signs Initial Vital Signs: Vital Signs Temperature 97.5 F L 07/21/24 15:04 Pulse Rate 108 H 07/21/24 15:04 Respiratory Rate 18 07/21/24 15:04 Blood Pressure 132/77 07/21/24 15:04 Pulse Oximetry 96 07/21/24 15:04 Oxygen Delivery Method Room Air 07/21/24 15:04 Course Orders Ordered: ED Orders 07/21/24 15:12 XR chest 1V Stat EKG-12 Lead Stat Measure peak expiratory flow ONCE RT Consult Eval and Treat NOW 07/21/24 15:35 Complete Blood Count AUTO DIFF Stat Comprehensive Metabolic Panel Stat NT-proBNP (BNP-Adult 18+) Stat Troponin I Stat 07/21/24 16:08 Lactate (Lactic Acid) Stat Prothrombin Time INR Stat 07/21/24 19:00 Trop I [Troponin I] Stat 07/21/24 19:35 Covid-19 + FLU A/B + RSV - PCR Stat Discontinued Medications Furosemide (Furosemide 40 Mg/4 Ml Vial) 40 mg IV NOW ONE Stop: 07/21/24 19:38 Last Admin: 07/21/24 20:03 Dose: 40 mg Documented By: LS Vital Signs Vital signs: Vital Signs - 8 hr 07/21/24 15:04 07/21/24 18:14 07/21/24 18:30 Temperature 97.5 F L Pulse Rate 108 H 109 H 109 H Respiratory Rate 18 35 H 42 H Blood Pressure 132/77 Pulse Oximetry 96 100 Oxygen Delivery Method Room Air MDM - SOB/Dyspnea Lab Data 07/21/24 15:35 07/21/24 15:35 Labs: Lab Results 07/21/24 07/21/24 07/21/24 Range/Units 15:35 16:08 19:00 WBC 8.4 (4.5-11.0) X10^3/uL RBC 5.00 (4.0-5.2) X10^6/uL Hgb 12.5 (12.0-16.0) g/dL Hct 39.8 (36-46) % MCV 79.5 L (80-100) fL MCH 25.0 L (26-34) PG MCHC 31.4 (30-36) % RDW 17.6 H (11.6-14.8) % Plt Count 228 (150-400) X10^3/uL Neut % (Auto) 77.6 H (50-75) % Lymph % (Auto) 14.7 L (25-40) % [place] % (Auto) 5.8 (3-14) % Eos % (Auto) 1.0 L (2-4) % Baso % (Auto) 0.9 (0-2) % Neut # (Auto) 6500 (6646-2074) /uL Lymph # (Auto) 1200 (9732-8138) /uL [place] # (Auto) 500 (0-900) /uL Eos # (Auto) 100 (0-450) /uL Baso # (Auto) 100 (0-100) /uL PT 13.1 H (9.4-12.5) SECONDS INR 1.2 (0.9-1.3) Sodium 140 (137-145) mmol/L Potassium 3.9 (3.4-5.1) mmol/L Chloride 107 (98-107) mmol/L Carbon Dioxide 25 (22-32) mmol/L BUN 22 H (7-17) mg/dL Creatinine 0.85 (0.52-1.04) mg/dL Estimated GFR > 60 (>60) mL/min BUN/Creatinine Ratio 25.9 H (6-22) Glucose 86 (80-110) mg/dL Lactate 1.6 (0.7-2.1) mmol/L Calcium 8.8 (8.4-10.2) mg/dL Total Bilirubin 0.7 (0.2-1.3) mg/dL AST 40 H (14-36) IU/L ALT 33 (<35) IU/L Alkaline Phosphatase 114 (38-126) U/L Troponin I 0.076 H 0.061 H (0.01-0.034) ng/mL NT-Pro-B Natriuret Pep 6350 H (<125) pg/mL Total Protein 6.9 (6.3-8.2) g/dL Albumin 3.7 (3.5-5.0) g/dL Globulin 3.2 (1.7-4.1) g/dL Albumin/Globulin Ratio 1.2 (1.0-2.8) Imaging Data Chest x-ray: Radiologist's Impression: [address] [address] XRay Report Signed Patient: Sejal Connor MR#: [id number] : 1960 Acct:[id number] Age/Sex: 64 / F Date of Service: 07/21/24 Loc: ED Accession Number: [id number] Procedure: XR chest 1V Ordering Provider: Luisa Perales D.O. PROCEDURE: XR CHEST 1V INDICATIONS: Shortness of breath TECHNIQUE: One view of the chest was acquired. COMPARISON: None. FINDINGS: Surgical changes and devices: None. Lungs and pleura: Pulmonary vascular congestion is seen. Small bilateral pleural effusion and bibasilar atelectasis/small infiltrates are seen. No pneumothorax. Mediastinum: Mediastinal contours appear normal. Heart size is enlarged. Bones and chest wall: No suspicious bony lesions. Overlying soft tissues appear unremarkable. IMPRESSION: CHF changes. Cannot rule out small bibasilar infiltrate/atelectasis. No pneumothorax. ECG Data Interpretation: EKG interpreted ED physician sinus tachycardia 110 beats per minute PVC noted QTC [address] changes no STEMI MDM Narrative Medical decision making narrative: 64-year-old female with a history of CHF on Lasix hydrochlorothiazide presents for worsening of her shortness of breath states that she has also been having some muscle weakness this all started in April of 2023, she states this all has been progressively getting worse states that she used to be an [place] and had a sports physiotherapist there but has not established with 1 here. States that she is also complaining of worsening lower extremity swelling, however she notes that a few months ago she did have left total knee replacement surgery. She denies any headache visual disturbances chest pain fever chills nausea vomiting abdominal pain or any other GI/ symptoms time. Patient had chest x-ray performed here did so pleural effusion versus consolidation however patient not requiring any supplemental oxygen no cough no white count therefore more likely CHF exacerbation/pleural effusion given elevated BNP. Gave dose of 40 mg Lasix with improvement of symptoms. Patient not dyspneic with conversation not requiring supplemental oxygen. EKG was nonischemic patient initial troponin 0.076 with repeat 0.61 most likely type 2 given CHF exacerbation patient without any chest pain patient instructed follow up with Cardiology and primary care in the outpatient setting she verbalized understanding of this and agrees to being discharged home with outpatient follow up Discharge Plan Departure Patient Disposition: Home Clinical Impression: CHF exacerbation Instructions: DI for Heart Failure Activity Restrictions/Additional Instructions: Please follow up with primary care in cardiology, please double your Lasix next 3 days Please read the discharge instructions sheet carefully and bring all papers to all doctor follow-up visits, as it may contain information that your doctor may want to see. Disease processes change and evolve, if your symptoms worsen or if you develop any new symptoms that are concerning to you please return for evaluation. Your evaluation today does not show any evidence of any life-threatening/serious illnesses requiring admission to the hospital or surgery. Please follow-up with your doctor for re-evaluation in approximately 1 day. Seek immediate medical attention for any worrisome symptoms. *If you do not have a primary care provider please contact the [facility] Resource line at [phone]. They will ask some questions about your medical history and help get you set up with a doctor in the community. Prescriptions: No Action dextroamphetamine-amphetamine [Adderall] 30 mg Tablet 30 mg PO BID Rx Instructions: administer doses at least 4-6 hours apart zolpidem [Ambien] 5 mg Tablet 5 mg PO BEDTIME PRN (Reason: Sleep) Rx Instructions: may repeat once if no response in 30-60 minutes promethazine 25 mg Tablet 25 mg PO Q4-6H PRN (Reason: Nausea, vomiting) cyclobenzaprine 10 mg tablet 20 mg PO BID PRN (Reason: Pain, Moderate) clonazepam 1 mg tablet 1 mg PO BID PRN (Reason: anxiety) magnesium oxide 400 mg (241.3 mg magnesium) tablet 400 mg PO DAILY propranolol 20 mg Tablet 20 mg PO PRN PRN (Reason: Anxiety) aspirin 81 mg Tablet,Delayed Release (Dr/Ec) 81 mg PO BID Qty: 90 0RF ondansetron 4 mg Tablet,Disintegrating 4 mg PO Q4HR PRN (Reason: Nausea And Vomiting) Qty: 10 1RF oxycodone 5 mg Tablet 5 mg PO Q4H PRN (Reason: Pain, Moderate (4-6)) Qty: 40 0RF Referrals: Sabiha Mijares MD [Primary Care Provider] - Andrew Rodriguez MD [Physician] - As soon as possible Stand Alone Forms: Patient Portal/API/Survey
[2024-07-21 19:44] LABS: Troponin I 0.061 ng/mL (0.01-0.034)
[2024-07-21] MEDS: FUROSEMIDE 40 MG/4 ML VIAL IV (20:03)
--- NOTE | 2024-07-21 20:30 | PC.NURSE ---
Pt ambulatory to restroom with cane without difficulty
== END 2024-07-21 20:52 | disposition home or self-care (01) ==
PROVIDERS: Emergency Medicine; Emergency Provider Student in an Organized Health Care Education/Training Program; PCP Internal Medicine
DX: I50.9 Heart failure, unspecified (principal); R06.02 Shortness of breath; Z79.01 Long term (current) use of anticoagulants; R60.9 Edema, unspecified; R00.0 Tachycardia, unspecified
CPT/HCPCS: 36415; 71045; 80053; 83605; 83880; 84484; 85025; 85610; 93005; 96374; 99284; J1940